=== PATIENT | female | born 1965 | race Caucasian/White ===

== ENCOUNTER 2016-04-24 06:48 | Emergency (ER) | payer SELFPAY ==
[~2016-04-24] VITALS: Ht 167.6 cm; Wt 63.6 kg
[2016-04-24 06:56] VITALS: BP 176/63
[2016-04-24] MEDS ORDERED: LEVO25TA4 PO (07:07)
== END 2016-04-24 09:16 | disposition left against medical advice (07) ==
LOC: EMS 06:51
DX: T18.9XXA Foreign body of alimentary tract, part unspecified, initial encounter (principal); R11.10 Vomiting, unspecified; Z53.21 Procedure and treatment not carried out due to patient leaving prior to being seen by health care provider; Y92.89 Other specified places as the place of occurrence of the external cause